=== PATIENT | male | born 1985 | race Two or more races ===

== ENCOUNTER 2020-07-01 18:08 | Emergency (ER) | payer MEDICAID, OTHER ==
[~2020-07-01] VITALS: Ht 185.4 cm; Wt 86.2 kg
[2020-07-01] MEDS ORDERED: LACTATED RINGER'S 1,000 ML IV ONE (19:30)
[2020-07-01] MEDS ORDERED: fentaNYL CITRATE 100 MCG/2 ML VL IV ONE (19:30)
[2020-07-01] MEDS ORDERED: ONDANSETRON HCL 4 MG/2 ML VIAL IV ONE (19:30)
[2020-07-01 19:31] LABS: Basophils # (auto) 0 10 ^3/uL (0-0.2); Basophils % (auto) 0.5 % (0.0-2.0); Eosinophils # (auto) 0 10 ^3/uL (0-0.8); Eosinophils % (auto) 0.2 % (0.0-7.0); Hemoglobin 15.9 g/dL (13.5-17.5); Lymphocytes # (auto) 1.4 10 ^3/uL (0.4-5.4); Lymphocytes % (auto) 31.9 % (10.0-50.0); Mean Corpuscular Hemoglobin 33.9 pg (28.0-32.0); Mean Corpuscular Hgb Conc. 36.1 g/dL (32.0-36.0); Mean Corpuscular Volume 93.9 fL (80.0-100.0); Monocytes # (auto) 0.3 10 ^3/uL (0-1.3); Monocytes % (auto) 6.3 % (0.0-12.0); Neutrophils # (auto) 2.7 10 ^3/uL (1.6-8.6); Neutrophils % (auto) 61.1 % (37.0-80.0); Red Blood Cells 4.69 10^6/uL (4.5-5.90); Red Cell Distribution Width 14.4 % (11.8-14.3); White Blood Cell 4.5 10^3/uL (4.4-10.8)
[2020-07-01 19:38] LABS: INR 0.94 (0.9-1.15)
[2020-07-01 19:50] LABS: Potassium 3.7 mmol/L (3.5-5.1)
[2020-07-01 19:55] LABS: Albumin 4.6 g/dL (3.4-5.0); BUN/Creatinine Ratio 7.3; Calcium 8.7 mg/dL (8.5-10.1)
[2020-07-01 19:57] LABS: Bilirubin, Total 0.6 mg/dL (0.2-1.0); Total Protein 8.7 g/dL (6.4-8.2)
[2020-07-01 20:46] LABS: Lactic Acid w/Reflex 2.1 mmol/L (0.4-2.0)
[2020-07-02 02:27] LABS: Lactic Acid w/Reflex 2.4 mmol/L (0.4-2.0)
[2020-07-02] MEDS ORDERED: HYDROcodone-ACET 7.5/325MG TAB PO ONE (02:45)
[2020-07-02] MEDS ORDERED: SODIUM CHLORIDE 0.9% 1,000 ML IV ONE (03:00)
[2020-07-02 04:00] VITALS: BP 115/55
== END 2020-07-02 04:54 | disposition home or self-care (01) ==
LOC: ER 18:09
DX: R10.13 Epigastric pain (principal); R11.2 Nausea with vomiting, unspecified; R10.84 Generalized abdominal pain; Z88.0 Allergy status to penicillin
CPT/HCPCS: 36415; 74176; 76705; 80053; 82150; 83605; 83690; 83735; 85025; 85610; 96361; 96374; 99285; J2405